=== PATIENT | female | born 1940 | race Caucasian/White ===

== ENCOUNTER → 2017-07-03 | Outpatient (CLI) | payer MEDICARE, BC ==
[~2017-07-03] MED LIST: ASPIR-LOW81 MG PO; CELEXA; DIAZIDE; FEMARA; HERCEPTIN; VITAMINS
== END ==
LOC: MC.RAD 09:20
DX: Z12.31 Encounter for screening mammogram for malignant neoplasm of breast (principal); Z85.3 Personal history of malignant neoplasm of breast; Z92.3 Personal history of irradiation; Z98.890 Other specified postprocedural states

== ENCOUNTER → 2018-07-17 | Outpatient (CLI) | payer MEDICARE, BC | LOC: MC.RAD 13:12 | DX: Z12.31 Encounter for screening mammogram for malignant neoplasm of breast (principal); Z85.3 Personal history of malignant neoplasm of breast ==

== ENCOUNTER → 2019-08-26 | Outpatient (CLI) | payer MEDICARE, BC | LOC: MC.RAD 16:42 | DX: Z12.31 Encounter for screening mammogram for malignant neoplasm of breast (principal); Z98.890 Other specified postprocedural states; Z92.3 Personal history of irradiation ==

== ENCOUNTER → 2020-08-27 | Outpatient (CLI) | payer MEDICARE, BC | LOC: MC.RAD 13:29 | DX: Z12.31 Encounter for screening mammogram for malignant neoplasm of breast (principal); Z98.890 Other specified postprocedural states ==

== ENCOUNTER 2021-07-01 13:17 | Outpatient (CLI) | payer MEDICARE, BC ==
[~2021-07-01 13:17] MED LIST changes: -ASPIR-LOW81 MG PO; +ASPIRIN E.C. 8181 MG PO; -CELEXA; +CELEXA 20MG20 MG/TAB PO
[2021-07-01 14:30] VITALS: BP 133/73; PULSE 71; TEMP 98.9
[2021-07-01 14:45] VITALS: BP 134/89; PULSE 70
[2021-07-01 15:00] VITALS: BP 141/62; PULSE 65
[2021-07-01 15:15] VITALS: BP 97/66; PULSE 69
[2021-07-01 15:30] VITALS: PULSE 70
[2021-07-01 15:45] VITALS: BP 138/69; PULSE 74; TEMP 98.8
[2021-07-01] MEDS ORDERED: BIOTIN800 MCG PO (18:14)
[2021-07-01] MEDS ORDERED: PROAIR HFA0.09 MG/AC IH (18:14)
[2021-07-01] MEDS ORDERED: OS-CAL 500 + D1 TAB PO (18:29)
[2021-07-01] MEDS ORDERED: ZYRTEC 10MG10 MG PO (18:29)
[2021-07-01] MEDS ORDERED: CRANBERRY250 MG PO (18:30)
[2021-07-01] MEDS ORDERED: FLOVENT 110MCG7.9 GM IH (18:31)
[2021-07-01] MEDS ORDERED: FOLIC ACID 40400 MCG PO (18:31)
[2021-07-01] MEDS ORDERED: CLARITIN 1010 MG/TAB PO (18:32)
[2021-07-01] MEDS ORDERED: HYZAAR 50-12.1 UDTAB PO (18:32)
[2021-07-01] MEDS ORDERED: OMEGA-31 SGL PO (18:33)
[2021-07-01] MEDS ORDERED: MULTIPLE VITAMI1 TA5 PO (18:33)
[2021-07-01] MEDS ORDERED: VESICARE 5MG5 MG PO (18:34)
[2021-07-01] MEDS ORDERED: PRILOSEC 20MG20 MG PO (18:34)
[2021-07-01] MEDS ORDERED: VITAMIN C500 MG PO (18:35)
[2021-07-01] MEDS ORDERED: VITAMIN B12 781 TAB PO (18:35)
== END 2021-07-01 16:00 | disposition home or self-care (01) ==
LOC: EUO 13:17
DX: U07.1 COVID-19 (principal); J98.4 Other disorders of lung
CPT/HCPCS: M0245

== ENCOUNTER → 2021-09-22 | Outpatient (CLI) | payer MEDICARE, BC ==
[~2021-09-22] MED LIST changes: +BIOTIN800 MCG PO; +CLARITIN 1010 MG/TAB PO; +CRANBERRY250 MG PO; +FLOVENT 110MCG7.9 GM IH; +FOLIC ACID 40400 MCG PO; +HYZAAR 50-12.1 UDTAB PO; +MULTIPLE VITAMI1 TA5 PO; +OMEGA-31 SGL PO; +OS-CAL 500 + D1 TAB PO; +PRILOSEC 20MG20 MG PO; +PROAIR HFA0.09 MG/AC IH; +VESICARE 5MG5 MG PO; +VITAMIN B12 781 TAB PO; +VITAMIN C500 MG PO; +ZYRTEC 10MG10 MG PO
== END ==
LOC: MC.RAD 13:47
DX: Z12.31 Encounter for screening mammogram for malignant neoplasm of breast (principal)

== ENCOUNTER → 2022-11-16 | Outpatient (CLI) | payer MEDICARE, BC | LOC: MC.RAD 11-08 16:45 | DX: Z12.31 Encounter for screening mammogram for malignant neoplasm of breast (principal); Z85.3 Personal history of malignant neoplasm of breast ==